=== PATIENT | male | born 1970 | race Two or more races ===

== ENCOUNTER 2024-10-01 14:32 | Emergency (ER) | payer MEDICARE, OTHER ==
[~2024-10-01] VITALS: Ht 172.7 cm; Wt 117.9 kg
[~2024-10-01 14:32] MED LIST: LORA2TAB95 PO
[2024-10-01] MEDS ORDERED: OLANZAPINE 10 MG VIAL IM ONE (15:46)
[2024-10-01 15:58] LABS: BASOPHILS # (AUTO) 0.1 K/uL (0.0-0.2); BASOPHILS % (AUTO) 0.7 % (0.0-2.0); EOSINOPHILS # (AUTO) 0.2 K/uL (0.0-0.7); EOSINOPHILS % (AUTO) 1.7 % (0.0-6.0); HEMATOCRIT 42 % (39-51); LYMPHOCYTES # (AUTO) 2.8 K/uL (0.8-4.8); MEAN CORPUSCULAR HEMOGLOBIN 30 PG (26.0-33.0); MEAN CORPUSCULAR HGB CONC 34 g/dl (31.0-36.0); MEAN CORPUSCULAR VOLUME 91 fL (80-96); MONOCYTES # (AUTO) 0.8 K/uL (0.1-1.30); MONOCYTES % (AUTO) 7.3 % (2.0-12.0); NEUTROPHILS # (AUTO) 6.5 K/uL (1.8-8.9); NEUTROPHILS % (AUTO) 63.3 % (43.0-81.0); PLATELET COUNT (AUTO) 270 K/uL (150-450); RED CELL DISTRIBUTION WIDTH 14.3 % (11.5-15.0); WHITE BLOOD COUNT (AUTO) 10.3 K/uL (4.3-11.0)
[2024-10-01 16:05] LABS: CALCIUM, SERUM 9.3 mg/dL (8.5-10.1); CARBON DIOXIDE 22 mmol/L (21-32); CHLORIDE 105 mmol/L (98-107); CREATININE 0.8 mg/dL (0.6-1.3); GLUCOSE 308 mg/dL (74-106); POTASSIUM 3.8 mmol/L (3.5-5.1); SODIUM SERUM 136 mmol/L (136-145); UREA NITROGEN, BLOOD 12 mg/dL (7-18)
[2024-10-01] MEDS: OLANZAPINE 10 MG VIAL IM ONE (16:05)
[2024-10-01 16:10] LABS: APPEARANCE,URINE CLEAR (CLEAR); BILIRUBIN,URINE Negative (NEGATIVE); BLOOD, URINE Negative Ery/uL (NEGATIVE); COLOR,URINE YELLOW (YELLOW); KETONES,URINE Negative (NEGATIVE); LEUKOCYTE ESTERASE ,URINE Negative (NEGATIVE); PH,URINE 6.5 (5.0-8.0); PROTEIN,URINE Trace mg/dl (NEGATIVE); UGLUCOSE >=1000 mg/dL (NEGATIVE)
[2024-10-01 16:11] LABS: NITRITE, URINE NEGATIVE (NEGATIVE); RBC,URINE 0-2 /HPF (0-2); WBC,URINE 0-2 /HPF (0-3)
[2024-10-01 16:11] LABS: ALANINE AMINOTRANSFERASE 13 U/L (12-78); ALBUMIN 3.8 g/dL (3.4-5.0); ALKALINE PHOSPHATASE 193 U/L (46-116); ASPARTATE AMINOTRANSFERASE 12 U/L (15-37); BILIRUBIN,DIRECT 0.1 mg/dL (0.0-0.2); BILIRUBIN,TOTAL 0.4 mg/dL (0.2-1.0); SALICYLATE 4.6 mg/dL (2.8-20.0); TOTAL PROTEIN, SERUM 7.9 g/dL (6.4-8.2)
[2024-10-01 16:12] LABS: ACETAMINOPHEN <10 ug/ml (10-30); ALCOHOL, BLOOD < 3 mg/dL (0-10)
[2024-10-01 16:12] LABS: ADD URINE CULTURE NO; BACTERIA,URINE Rare /HPF (None Seen); CALCIUM OXALATE CRYSTALS,UR Rare /HPF (None Seen); SQUAMOUS EPITHELIAL CELL,UR None Seen /HPF (None Seen)
[2024-10-01 16:17] LABS: AMPHETAMINE, URINE NEGATIVE (NEGATIVE); BARBITURATE, URINE NEGATIVE (NEGATIVE); BENZODIAZEPINE, URINE NEGATIVE (NEGATIVE); CANNABINOID, URINE NEGATIVE (NEGATIVE); COCCAINE, URINE NEGATIVE (NEGATIVE); OPIATE, URINE NEGATIVE (NEGATIVE); PHENCYCLIDINE SCREEN,URINE NEGATIVE (NEGATIVE)
[2024-10-01] MEDS ORDERED: QUET25TA PO (16:49)
[2024-10-01] MEDS ORDERED: QUET300T2 PO (16:49)
[2024-10-01] MEDS ORDERED: LITH300C2 PO (16:49)
[2024-10-01] MEDS ORDERED: DEXT1TAB19 PO (16:49)
[2024-10-01] MEDS ORDERED: METF-442 PO (16:49)
[2024-10-01] MEDS ORDERED: TOPI100T38 PO (16:49)
[2024-10-01] MEDS ORDERED: INSU100V3 SQ (16:49)
[2024-10-01] MEDS ORDERED: CALC355O18 PO (16:49)
[2024-10-01] MEDS ORDERED: INSU100I26 SQ (16:49)
[2024-10-01] MEDS ORDERED: MAGN400O6 PO (16:49)
[2024-10-01] MEDS ORDERED: TEMA15CA5 PO (16:49)
[2024-10-01] MEDS ORDERED: FERR325T29 PO (16:49)
[2024-10-01] MEDS ORDERED: ACET325T53 PO (16:49)
[2024-10-01] MEDS ORDERED: AMLO-213 PO (16:49)
[2024-10-01] MEDS ORDERED: GLUC1KIT IM (16:49)
[2024-10-01] MEDS ORDERED: ATOR40TA PO (16:49)
[2024-10-01 18:45] VITALS: BP 124/77; TEMP 98.2; O2SAT 97
== END 2024-10-01 19:35 | disposition short-term general hospital (02) ==
LOC: ER 14:35
DX: R45.6 Violent behavior (principal); E11.65 Type 2 diabetes mellitus with hyperglycemia; E78.5 Hyperlipidemia, unspecified; I10 Essential (primary) hypertension; F41.9 Anxiety disorder, unspecified; Z79.4 Long term (current) use of insulin; Z79.84 Long term (current) use of oral hypoglycemic drugs; Z79.899 Other long term (current) drug therapy; Z20.822 Contact with and (suspected) exposure to COVID-19
CPT/HCPCS: 99285; 96372; 85025; 80048; 80076; 81001; 36415; 87426; 80143; 80320; 80307; J3490; G0480